=== PATIENT | male | born 1980 | race Caucasian/White ===

== ENCOUNTER → 2021-01-18 | Outpatient (CLI) | payer OTHER ==
[2006-08-27 19:00] VITALS: TEMP 98.4
[~2021-01-18] MED LIST: BALSALAZIDE DI750 MG PO; CENTRUM1 TAB PO; DICLOFENAC SOD2.5 ML TOP; DUO-KAPS1 CAP PO; EXCEDRIN BACK &1 TAB PO; EXCEDRIN1 TAB PO; GLUCOSAMINE & C1 TAB PO; HUMIRA40 MG/0.8 MR; HUMIRA40 MG/0.8 SQ; IMURAN 50MG TAB50 MG PO; MASON NATURAL2000 IU PO; PENTASA PO; PREDNISONE50 MG PO; PRIL40 PO; ROXICODONE 55 MG/TAB PO; TYLENOL 500MG500 MG PO; ZINC NATURAL50 MG PO; [UNRECOGNIZED DRUG - OTHER] PO
== END ==
LOC: COL.RAD 08:03
DX: K76.0 Fatty (change of) liver, not elsewhere classified (principal); K52.9 Noninfective gastroenteritis and colitis, unspecified; K63.89 Other specified diseases of intestine; K56.699 Other intestinal obstruction unspecified as to partial versus complete obstruction; K50.90 Crohn's disease, unspecified, without complications
CPT/HCPCS: Q9967

== ENCOUNTER 2021-01-22 12:35 | Inpatient (IN) | payer OTHER ==
[~2021-01-22] VITALS: Ht 172.7 cm; Wt 101.8 kg
[~2021-01-22 12:35] MED LIST changes: -BALSALAZIDE DI750 MG PO; -DICLOFENAC SOD2.5 ML TOP; -DUO-KAPS1 CAP PO; -EXCEDRIN1 TAB PO; -GLUCOSAMINE & C1 TAB PO; -HUMIRA40 MG/0.8 SQ; -MASON NATURAL2000 IU PO; -PRIL40 PO; -ROXICODONE 55 MG/TAB PO; -TYLENOL 500MG500 MG PO
[2021-02-07] VITALS (10 sets, daily range): BP systolic 123–136; BP diastolic 72–89; PULSE 70–97; TEMP 97.9–98.4
[2021-02-07 10:07] LABS: BASO % 0.2 % (0.0-2.0); EOS # 0.1 (0.0-0.7); EOS % 1.1 % (0-4.0); GRAN # 5.1 (1.4-6.5); GRAN % 61.3 % (42.2-75.2); HEMATOCRIT 46.8 % (42.0-52.0); HEMOGLOBIN 16.3 g/dl (13.5-18.0); MEAN CELL VOLUME 94 fl (80.0-100.0); MEAN CORPUSCULAR HEMOGLOBIN 33 pg (27.0-31.0); MEAN CORPUSCULAR HGB CONC 35 g/dl (33.0-37.0); MEAN PLATELET VOLUME 10.8 fl (7.4-10.4); MONO # 1.1 (0.1-0.6); MONO % 12.8 % (1.7-9.3); PLATELET COUNT 184 K/mm3 (130-400); REDCELL DISTRIBUTION WIDTH-CV 12.2 % (11.5-14.5)
[2021-02-07 10:21] LABS: ALBUMIN 4.5 gm/dL (3.5-5.0); BILIRUBIN,TOTAL 0.4 mg/dL (0.0-1.0); CALCIUM 9.1 mg/dL (8.4-10.2); CREATININE, serum 0.95 (0.66-1.25); POTASSIUM 3.8 mmol/L (3.4-5.0); TOTAL PROTEIN 8.1 gm/dL (6.4-8.2)
[2021-02-07] MEDS ORDERED: BALSALAZIDE DI750 MG PO (10:47)
[2021-02-07] MEDS ORDERED: PRIL40 PO (10:48)
[2021-02-07] MEDS ORDERED: HUMIRA40 MG/0.8 SQ (10:50)
[2021-02-07] MEDS ORDERED: GLUCOSAMINE & C1 TAB PO (10:52)
[2021-02-07] MEDS ORDERED: DICLOFENAC SOD2.5 ML TOP (10:52)
[2021-02-07] MEDS ORDERED: DUO-KAPS1 CAP PO (10:53)
[2021-02-07] MEDS ORDERED: MASON NATURAL2000 IU PO (10:54)
[2021-02-07] MEDS ORDERED: EXCEDRIN1 TAB PO (10:55)
--- NOTE | 2021-02-07 19:30 | NUR ---
ARRIVES FROM PACU PER BED. FAMILY AT BEDSIDE.
--- NOTE | 2021-02-07 20:42 | NUR ---
PT COMPLAINS OF PAIN TO ABD AND RT SHOULDER. DILAUDID 0.25MG IVP GIVEN. HAS IVF TO RIGHT HAND INFUSING WITHOUT PROBLEM. ABD WITH BANDAIDS X6 AND TEGADERM DRSG TO ABD D/I. VILLASEÑOR TO BSD WITH YELLOW URINE. DENIES NAUSEA. TAKING WATER AND JELLO WITHOUT PROBLEM.
--- NOTE | 2021-02-07 23:18 | NUR ---
MEDICATED WITH SCHEDULED ES TYLENOL AND ONE OXYCODONE 5MG PO FOR ABD/CHEST PAIN. WARM BLANKET APPLIED TO CHEST. PT UP TO BATHROOM THINKING HE NEEDED TO HAVE A BM, NO SUCCESS.
[2021-02-08] VITALS (7 sets, daily range): BP systolic 122–141; BP diastolic 72–88; PULSE 75–100; TEMP 97.6–98.8
--- NOTE | 2021-02-08 01:37 | NUR ---
PT COMPLAINS OF SHOULDER AND CHEST PAIN AND HEADACHE. TRAMADOL 100MG PO GIVEN. ASSISTED TO CHAIR AT BEDSIDE.
--- NOTE | 2021-02-08 05:00 | NUR ---
Pt back to bed. Rates pain 12/13. Mathis patent.
[2021-02-08 07:00] LABS: CALCIUM 8.6 mg/dL (8.4-10.2); CREATININE, serum 0.91 (0.66-1.25); HEMATOCRIT 41.4 % (42.0-52.0); MEAN CELL VOLUME 93 fl (80.0-100.0); MEAN CORPUSCULAR HEMOGLOBIN 32 pg (27.0-31.0); MEAN CORPUSCULAR HGB CONC 35 g/dl (33.0-37.0); MEAN PLATELET VOLUME 12.2 fl (7.4-10.4); PLATELET COUNT 145 K/mm3 (130-400); POTASSIUM 3.8 mmol/L (3.4-5.0); RED BLOOD COUNT 4.44 M/mm3 (4.20-5.60); REDCELL DISTRIBUTION WIDTH-CV 12.1 % (11.5-14.5)
[2021-02-08 07:52] LABS: HEMOGLOBIN 14.3 g/dl (13.5-18.0)
[2021-02-08 07:55] LABS: BAND 16 % (0-10); LYMPHOCYTE 16 % (20.0-51.0); NEUTROPHILS 59 % (42.0-75.2); PLATELET ESTIMATE NORMAL (NORMAL)
--- NOTE | 2021-02-08 09:59 | NUR ---
Initial visit; Patient thanked Hogshead Dumper for looking in on him and offering encouragement and God's blessings. Patient assured Hogshead Dumper he has a good support system and thanked her for wishing him well and keeping him in her prayers.
--- NOTE | 2021-02-08 19:10 | NUR ---
Pt resting in bed. He is just getting ready to eat some dinner. No needs verbalized, call light within reach
--- NOTE | 2021-02-08 19:22 | NUR ---
Patient doing well throughout the day, has been up ambulating in halls throughout the day, steady gait. Mathis discontinued per orders at approximately 1730 per orders, patient tolerated procedure well. Patient states he did have a BM this afternoon, also voiding without difficulties. Lap sites are CDI. INT to right hand without complications. Patient denies further needs at this time. Reported off to rn night.
--- NOTE | 2021-02-08 21:08 | NUR ---
Pt resting with eyes closed, even non labored breathing
[2021-02-09] VITALS (8 sets, daily range): BP systolic 103–136; BP diastolic 66–80; PULSE 94–107; TEMP 98.8–100.7
--- NOTE | 2021-02-09 04:30 | NUR ---
Pt has done well through the night. He does have a temp of 100.2. He states that he does not feel feverish, and that he always gets hot at night. Had him use his incentive spirometer. Pain 2/10 with movement. No needs verbalized, will continue to monitor
--- NOTE | 2021-02-09 05:10 | NUR ---
Pt went for a walk then rechecked temp and it was 98.5 orally.
[2021-02-09 07:19] LABS: HEMATOCRIT 38.3 % (42.0-52.0); HEMOGLOBIN 13.2 g/dl (13.5-18.0); MEAN CELL VOLUME 95 fl (80.0-100.0); MEAN CORPUSCULAR HEMOGLOBIN 33 pg (27.0-31.0); MEAN CORPUSCULAR HGB CONC 35 g/dl (33.0-37.0); MEAN PLATELET VOLUME 11.7 fl (7.4-10.4); PLATELET COUNT 158 K/mm3 (130-400); RED BLOOD COUNT 4.05 M/mm3 (4.20-5.60); REDCELL DISTRIBUTION WIDTH-CV 12.5 % (11.5-14.5)
[2021-02-09 07:32] LABS: CALCIUM 8.7 mg/dL (8.4-10.2); CREATININE, serum 0.91 (0.66-1.25); POTASSIUM 3.4 mmol/L (3.4-5.0)
[2021-02-09 08:06] LABS: BAND 12 % (0-10); LYMPHOCYTE 15 % (20.0-51.0); NEUTROPHILS 63 % (42.0-75.2); PLATELET ESTIMATE NORMAL (NORMAL)
--- NOTE | 2021-02-09 08:15 | NUR ---
Patient sitting up in recliner, alert and oriented x 3. Assessment complete. Patient states he has had x3 liquid/loose stools since yesterday. Encouraged increase activity today. Lap sites with bandaids are CDI, low transverse site with gauze and minimal drainage present. Patient states pain 2/10 at this time. Denies further needs at this time.
[2021-02-09] MEDS ORDERED: ROXICODONE 55 MG/TAB PO (09:46)
[2021-02-09] MEDS ORDERED: TYLENOL 500MG500 MG PO (09:46)
--- NOTE | 2021-02-09 14:26 | NUR ---
Patient up ambulating in halls independently.
--- NOTE | 2021-02-09 14:58 | NUR ---
SLIME met with the patient to discuss discharge plan. The patient lives in [place] with his , Caroline (ph#[phone]), and their daughter. He reports independence with ADLs and does not have any DME. The patient's PCP is Dr. Tunde Flores and he receives his medications from [facility]. He reports no difficulties obtaining his meds. The patient does not have a DPOA-HC, but he was interested in obtaining a form. SLIME provided. The patient plans to return home with his family upon discharge. No additional needs at this time. *Discharge plan: home with family*
--- NOTE | 2021-02-09 15:24 | NUR ---
Patient sitting in recliner, states mild pain and headach, medications given per orders.
--- NOTE | 2021-02-09 15:50 | NUR ---
Patient up ambulating in halls.
--- NOTE | 2021-02-09 17:58 | NUR ---
Patient doing well throughout the day, states he has been passing gas and having BM. Tylenol given as scheduled. Has been up ambulating in halls. Encouraged IS use. Denies further needs at this time. 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
--- NOTE | 2021-02-09 18:04 | NUR ---
Contacted Dr. Altamirano about contined fevers. recheck CBC in AM.
--- NOTE | 2021-02-09 21:00 | NUR ---
PT AMBULATING IN HALLWAY. IS ALERT AND ORIENTED X4. PASSING GAS/BM AND VOIDING WELL. SL TO RT HAND, FLUSHES WELL. ABD DISTENDED, SOFT WITH ACTIVE BS. SURGICAL SITES D/I. DENIES NEEDS AT THIS TIME.
--- NOTE | 2021-02-10 02:00 | NUR ---
PT UP IN HALLWAYS, NO COMPLAINTS OFFERED.
[2021-02-10 04:08] VITALS: BP 131/77; PULSE 87; TEMP 98.7
--- NOTE | 2021-02-10 05:58 | NUR ---
TAKES SCHEDULED AM MEDS. DENIES NEEDS AT THIS TIME.
[2021-02-10 07:23] LABS: BASO % 0.3 % (0.0-2.0); EOS # 0.1 (0.0-0.7); EOS % 1.1 % (0-4.0); GRAN # 8.5 (1.4-6.5); GRAN % 70.6 % (42.2-75.2); HEMOGLOBIN 12.9 g/dl (13.5-18.0); LYMPH # 1.8 (1.2-3.4); LYMPH % 14.5 % (20.0-51.0); MEAN CELL VOLUME 94 fl (80.0-100.0); MEAN CORPUSCULAR HEMOGLOBIN 33 pg (27.0-31.0); MEAN CORPUSCULAR HGB CONC 35 g/dl (33.0-37.0); MEAN PLATELET VOLUME 11.1 fl (7.4-10.4); MONO # 1.5 (0.1-0.6); MONO % 12.4 % (1.7-9.3); PLATELET COUNT 158 K/mm3 (130-400); REDCELL DISTRIBUTION WIDTH-CV 12.4 % (11.5-14.5)
[2021-02-10 07:24] LABS: HEMATOCRIT 36.5 % (42.0-52.0)
[2021-02-10 08:26] VITALS: BP 125/72; PULSE 89; TEMP 98.4
--- NOTE | 2021-02-10 08:40 | NUR ---
Patient sitting up in recliner. Alert and oriented x 3. Assessment complete. Lap sites CDI with bandaids/gauze. INT to right hand without complications. States pain to abdomen 5/10- medications given per orders denies further needs at this time.
[2021-02-10 10:57] VITALS: BP 127/79; PULSE 88; TEMP 98.4
--- NOTE | 2021-02-10 11:20 | NUR ---
Patient has been up ambulating in halls. Discharge education provided to patient. Educated on when to call provider and follow up appointments. Patient educated on signs and symptoms of infection; as well as diet. All questions answered. INT to right hand discontinued, catheter tip intact. Denies further needs at this time. Patient ambulated out with surgical staff and family.
== END 2021-02-10 11:20 | disposition home or self-care (01) | DRG 330 ==
LOC: SURG 02-07 08:45 → INPTSU 02-07 08:45 → SURG 02-07 11:30
PROVIDERS: ADMIT Surgery
PROC: 0DTG0ZZ Resection of Left Large Intestine, Open Approach (ICD-10-PCS; principal; 2021-02-07 11:30)
DX: K50.90 Crohn's disease, unspecified, without complications (principal); K56.699 Other intestinal obstruction unspecified as to partial versus complete obstruction; Z20.822 Contact with and (suspected) exposure to COVID-19; E66.9 Obesity, unspecified; Z68.34 Body mass index [BMI] 34.0-34.9, adult
CPT/HCPCS: A4314; A9284; J0690; J1100; J1170; J1650; J1885; J2405; J2704; J3010; J7120